=== PATIENT | female | born 1990 | race Caucasian/White ===

== ENCOUNTER 2019-08-30 21:08 | Emergency (ER) | payer MEDICAID ==
--- NOTE | 2019-08-30 22:20 | ED Physician Documentation ---
History of Present Illness - Stated complaint Stated Complaint: BACK,L HIP PAIN - Chief complaint Chief Complaint: Back Pain - History obtained from History obtained from: Patient - History of Present Illness Timing: How many weeks ago ("couple of weeks", per patient) Pain level now: 8 Improved by: rest Worsened by: movement - Additonal information Additional information: "my left hip's been hurting for a couple weeks", per patient. Tonight, she was bending forward to touch her toes when she felt/heard a loud "pop" from low back/left hip, with sudden onset pain that is distinctly worse with movement. Review of Systems Constitutional: denies: Fever Skin: denies: Rash Musculoskeletal: reports: Back pain, Joint pain. denies: Neck pain Neurologic: denies: Focal weakness, Numbness, Headache PD PAST MEDICAL HISTORY - Past Medical History Past Medical History: Yes Other Past Medical History: fibromyalgia - Present Medications Home Medications: Ambulatory Orders Medication Instructions Recorded Confirmed Cyclobenzaprine [Flexeril] 10 mg PO TID PRN #20 tablet 08/30/19 HYDROcod/ACETAM 5/325 [Barbeau 5/325] 1 - 2 ea PO Q6H PRN #15 tablet 08/30/19 Naproxen PRN 08/30/19 08/30/19 Ondansetron Odt [Zofran] 4 mg TL Q6H PRN #10 tablet 08/30/19 - Allergies Allergies/Adverse Reactions: Allergies Allergy/AdvReac Type Severity Reaction Status Date / Time albuterol Allergy Respiratory Verified 08/30/19 21:18 latex Allergy Rash Verified 08/30/19 21:18 - Living Situation Living Arrangement: reports: At home PD ED PE NORMAL - Vitals Vital signs reviewed: Yes - General General: Alert and oriented X 3, No acute distress (NAD at rest, lying on side (right side down), but obvious painful discomfort with movement involving back, particularly mid/lower back, as well as with movement of left hip (although she is able to slowly extend and flex left hip)), Well developed/nourished - Neck Neck: Supple, no meningeal sign, No bony TTP - Respiratory Respiratory: No respiratory distress, Clear bilaterally - Abdomen Abdomen: Soft, Non tender - Derm Derm: Normal color, Warm and dry, No rash - Extremities Extremities: No edema - Neuro Neuro: Alert and oriented X 3, No motor deficit, No sensory deficit PD ED PE EXPANDED - Back Back: Limited ROM, Other (mild paralumbar TTP). No: Vertebral tenderness Results - Vitals Vitals: Vital Signs - 24 hr 08/30/19 08/30/19 21:12 23:50 Temperature 36.6 C 36.7 C Heart Rate 92 72 Respiratory 100 H 18 Rate Blood Pressure 116/55 L 95/42 L O2 Saturation 99 Oxygen O2 Source Room air PD MEDICAL DECISION MAKING - ED course Complexity details: re-evaluated patient, considered differential, d/w patient ED course: atraumatic LBP and left hip pain, sudden onset with bending. No h/o surgery to either of these areas. Exam is not s/o emergent process such as fracture, dislocation, infection, cauda equina syndrome. She reported adequate symptom relief with IM toradol, dilaudid, and PO flexeril. Given zofran for nausea prior to d/c Departure - Departure Disposition: 01 Home, Self Care Clinical Impression: Back pain Qualifiers: Back pain location: low back pain Chronicity: acute Back pain laterality: left Sciatica presence: without sciatica Qualified Code(s): M54.5 - Low back pain Condition: Good Instructions: NARCOTIC, Oral, ED Neck Back Pain General Prescriptions: Cyclobenzaprine [Flexeril] 10 mg PO TID PRN #20 tablet PRN Reason: Spasms HYDROcod/ACETAM 5/325 [Barbeau 5/325] 1 - 2 ea PO Q6H PRN #15 tablet PRN Reason: Pain Ondansetron Odt [Zofran] 4 mg TL Q6H PRN #10 tablet PRN Reason: Nausea / Vomiting Comments: Follow up with your primary care physician: call in the morning to arrange for next available appointment Discharge Date/Time: 08/30/19 23:57
[2019-08-30] MEDS ORDERED: HYDROmorphone 2 MG/ML VIAL IM STA (22:49)
[2019-08-30] MEDS ORDERED: KETOROLAC 60 MG/2 ML VIAL IM STA (22:49)
[2019-08-30] MEDS ORDERED: CYCLOBENZAPRINE 10 MG TABLET PO STA (22:49)
[2019-08-30] MEDS ORDERED: ONDANSETRON ODT 4 MG TABLET TL STA (23:45)
[2019-08-30 23:51] VITALS: BP 95/42
== END 2019-08-30 23:57 | disposition home or self-care (01) ==
LOC: ED 21:08
DX: M54.5 Low back pain (principal); M25.552 Pain in left hip
CPT/HCPCS: 96372; 99283; 99284; A9270; J1170; Q0162

== ENCOUNTER 2023-06-24 11:15 | Outpatient (CLI) | payer BC, MEDICAID | END 2023-06-24 11:30 | disposition home or self-care (01) | LOC: LAB.N 11:15 | PROVIDERS: ATTEND Family Medicine | DX: H01.006 Unspecified blepharitis left eye, unspecified eyelid (principal) | CPT/HCPCS: 87070; 87205 ==